=== PATIENT | female | born 1985 | race Caucasian/White ===

== ENCOUNTER 2023-10-22 07:22 | Day surgery (SDC) | payer OTHER ==
[~2023-10-22] VITALS: Ht 157.5 cm; Wt 79.7 kg
[2023-10-22 10:51] VITALS: BP 128/91
== END 2023-10-22 11:07 | disposition home or self-care (01) ==
LOC: ORSCMMR 07:22 → ORD 08:30 → ORSCMMR 11:07
PROC: 0JBL0ZX Excision of Right Upper Leg Subcutaneous Tissue and Fascia, Open Approach, Diagnostic (ICD-10-PCS; principal; 2023-10-22)
DX: D17.23 Benign lipomatous neoplasm of skin and subcutaneous tissue of right leg (principal); F31.9 Bipolar disorder, unspecified; E66.9 Obesity, unspecified; Z68.32 Body mass index [BMI] 32.0-32.9, adult; Z87.891 Personal history of nicotine dependence; Z79.899 Other long term (current) drug therapy